=== PATIENT | male | born 1945 | race Caucasian/White ===

== ENCOUNTER 2016-11-14 16:25 | Inpatient (IN) | payer MEDICARE, BC ==
[2016-11-14] VITALS (119 sets, daily range): BP systolic 146–167; BP diastolic 79–98; PULSE 73–81; TEMP 98.3; O2SAT 94–100
[~2016-11-14] VITALS: Ht 180.3 cm; Wt 73.9 kg
[~2016-11-14 16:25] MED LIST: NO HOME MEDICATIONS
[2016-11-14 17:36] LABS: BASO % 0.3 % (0.0-2.0); EOS % 0.1 % (0-4.0); GRAN % 92.4 % (42.2-75.2); HEMATOCRIT 41.1 % (42.0-52.0); HEMOGLOBIN 13.7 g/dl (13.5-18.0); LYMPH # 0.5 (1.2-3.4); MEAN CELL VOLUME 84 fl (80.0-100.0); MEAN CORPUSCULAR HEMOGLOBIN 28 pg (27.0-31.0); MEAN CORPUSCULAR HGB CONC 33 g/dl (33.0-37.0); MONO # 0.4 (0.1-0.6); MONO % 2.9 % (1.7-9.3); PLATELET COUNT 154 K/mm3 (130-400); RED BLOOD COUNT 4.89 M/mm3 (4.20-5.60); REDCELL DISTRIBUTION WIDTH-CV 12.4 % (11.5-14.5); WHITE BLOOD COUNT 11.9 K/mm3 (4.8-10.8)
[2016-11-14 17:40] LABS: INR 1.1 (0.8-3.0); PROTHROMBIN TIME 12.3 SECONDS (9.7-12.8)
[2016-11-14 17:43] LABS: PARTIAL THROMBOPLASTIN TIME 30.4 SECONDS (26.0-37.0)
[2016-11-14 18:06] LABS: ADJUSTED CALCIUM 8.1 mg/dL (8.4-10.2); ALBUMIN 3.5 gm/dL (3.5-5.0); BILIRUBIN,TOTAL 0.7 mg/dL (0.0-1.0); CALCIUM 7.7 mg/dL (8.4-10.2); CREATININE, serum 1.22 mg/dL (0.66-1.25); TOTAL PROTEIN 6.3 gm/dL (6.4-8.2)
[2016-11-14 18:12] LABS: POTASSIUM 2.8 mmol/L (3.4-5.0)
[2016-11-14 18:17] LABS: TROPONIN-I 0.028 ng/mL (0.000-0.034)
[2016-11-14 18:22] LABS: PROLACTIN 10.6 ng/mL (3.7-17.9)
[2016-11-14 23:41] LABS: POTASSIUM 3.5 mmol/L (3.4-5.0)
[2016-11-15] VITALS (293 sets, daily range): BP systolic 125–173; BP diastolic 70–102; PULSE 59–67; TEMP 97–98.8; O2SAT 93–100
[2016-11-15 00:28] LABS: PH 6 (5-8); SQUAMOUS EPITHELIAL 0-2 /hpf; URINE APPEARANCE Clear; URINE BACTERIA None Seen /hpf; URINE BILIRUBIN Negative (NEGATIVE); URINE BLOOD 1+ (NEGATIVE); URINE COLOR Yellow; URINE GLUCOSE 1+ (NEGATIVE); URINE KETONE Negative (NEGATIVE); URINE RBC 0-2 /hpf; URINE UROBILINOGEN Negative (NEGATIVE); URINE WBC 0-2 /hpf
[2016-11-15 06:38] LABS: BASO % 0.4 % (0.0-2.0); EOS # 0.1 (0.0-0.7); EOS % 1.3 % (0-4.0); GRAN # 5.2 (1.4-6.5); GRAN % 72.1 % (42.2-75.2); HEMATOCRIT 38.6 % (42.0-52.0); HEMOGLOBIN 12.9 g/dl (13.5-18.0); LYMPH # 1.4 (1.2-3.4); LYMPH % 19.7 % (20.0-51.0); MEAN CELL VOLUME 84 fl (80.0-100.0); MEAN CORPUSCULAR HEMOGLOBIN 28 pg (27.0-31.0); MEAN CORPUSCULAR HGB CONC 33 g/dl (33.0-37.0); MEAN PLATELET VOLUME 11.3 fl (7.4-10.4); MONO # 0.4 (0.1-0.6); MONO % 6.2 % (1.7-9.3); PLATELET COUNT 149 K/mm3 (130-400); RED BLOOD COUNT 4.58 M/mm3 (4.20-5.60); REDCELL DISTRIBUTION WIDTH-CV 12.6 % (11.5-14.5); WHITE BLOOD COUNT 7.1 K/mm3 (4.8-10.8)
[2016-11-15 06:47] LABS: CALCIUM 8.6 mg/dL (8.4-10.2); CREATININE, serum 1.26 mg/dL (0.66-1.25); POTASSIUM 3.6 mmol/L (3.4-5.0)
[2016-11-16] VITALS (8 sets, daily range): BP systolic 115–201; BP diastolic 69–95; PULSE 55–66; TEMP 97.6–98.7
[2016-11-16] MEDS ORDERED: TENORMIN 2525 MG/TAB PO (18:05)
[2016-11-16] MEDS ORDERED: ZESTORETIC 12.51 TA1 PO (18:09)
[2016-11-16] MEDS ORDERED: PROCARDIA XL 6060 MG PO (18:10)
[2016-11-16] MEDS ORDERED: ASPIRIN 81M81 MG/TA2 PO (18:12)
[2016-11-17 03:45] VITALS: BP 123/67; PULSE 56; TEMP 97.6
[2016-11-17 08:03] VITALS: BP 145/82; PULSE 58; TEMP 97.5
[2016-11-17 11:15] VITALS: BP 118/61; PULSE 53; TEMP 98.4
== END 2016-11-17 17:16 | disposition home or self-care (01) | DRG 305 ==
LOC: COL.ER 16:25 → ICU 18:56 → PEDS 18:56
PROVIDERS: Emergency Medicine; Family Medicine
DX: I16.0 Hypertensive urgency (principal); I67.4 Hypertensive encephalopathy; I12.9 Hypertensive chronic kidney disease with stage 1 through stage 4 chronic kidney disease, or unspecified chronic kidney disease; N18.9 Chronic kidney disease, unspecified; E87.6 Hypokalemia; Z91.14 Patient's other noncompliance with medication regimen
CPT/HCPCS: 99223-AI; 99232-AI; 99233-AI; 99239; J1644; J3480; J7030

== ENCOUNTER 2017-01-05 11:57 | Inpatient (IN) | payer MEDICARE, BC ==
[~2017-01-05] VITALS: Ht 177.8 cm; Wt 70.1 kg
[~2017-01-05 11:57] MED LIST changes: +ASPIRIN 81M81 MG/TA2 PO; +PROCARDIA XL 6060 MG PO; +TENORMIN 2525 MG/TAB PO; +ZESTORETIC 12.51 TA1 PO
[2017-01-05 12:34] LABS: BASO % 0.3 % (0.0-2.0); EOS # 0.1 (0.0-0.7); EOS % 0.5 % (0-4.0); GRAN # 9.7 (1.4-6.5); GRAN % 87.3 % (42.2-75.2); HEMATOCRIT 41.2 % (42.0-52.0); LYMPH % 8.6 % (20.0-51.0); MEAN CELL VOLUME 84 fl (80.0-100.0); MEAN CORPUSCULAR HEMOGLOBIN 28 pg (27.0-31.0); MEAN CORPUSCULAR HGB CONC 34 g/dl (33.0-37.0); MONO # 0.3 (0.1-0.6); MONO % 2.9 % (1.7-9.3); PLATELET COUNT 175 K/mm3 (130-400); RED BLOOD COUNT 4.93 M/mm3 (4.20-5.60); WHITE BLOOD COUNT 11.1 K/mm3 (4.8-10.8)
[2017-01-05 12:52] LABS: ALANINE AMINOTRANSFERASE 15 U/L (21-72); ALBUMIN 4.1 gm/dL (3.5-5.0); ALKALINE PHOSPHATASE 91 U/L (50-136); ANION GAP 16 mmol/L (7-16); BILIRUBIN,TOTAL 0.7 mg/dL (0.0-1.0); BLOOD UREA NITROGEN 19 mg/dL (9-20); CALCIUM 9.1 mg/dL (8.4-10.2); CARBON DIOXIDE 20 mmol/L (22-30); CHLORIDE 104 mmol/L (98-107); CREATININE, serum 1.33 mg/dL (0.66-1.25); GLUCOSE 175 mg/dL (74-106); PARTIAL THROMBOPLASTIN TIME 26.4 SECONDS (26.0-37.0); POTASSIUM 3.4 mmol/L (3.4-5.0); SODIUM 139 mmol/L (137-145); TOTAL PROTEIN 7.3 gm/dL (6.4-8.2)
[2017-01-05 13:03] LABS: ALCOHOL(ethanol),MEDICAL < 10 mg/dL; PROTHROMBIN TIME 10.5 SECONDS (9.7-12.8); TROPONIN-I < 0.012 ng/mL (0.000-0.034)
[2017-01-05] MEDS ORDERED: CATAPRES 0.1MG0.1 MG PO (15:54)
[2017-01-05] MEDS ORDERED: NORVASC 10MG10 MG PO (15:54)
[2017-01-05 18:24] VITALS: BP 201/104; PULSE 95; TEMP 97.7
[2017-01-05 20:47] VITALS: BP 180/102; PULSE 81; TEMP 98.6
[2017-01-06] VITALS (8 sets, daily range): BP systolic 96–167; BP diastolic 54–88; PULSE 58–114; TEMP 95.6–98.5
[2017-01-07 03:28] VITALS: BP 127/63; PULSE 68; TEMP 98.6
[2017-01-07 07:17] LABS: CALCIUM 8.7 mg/dL (8.4-10.2); CREATININE, serum 1.27 mg/dL (0.66-1.25); POTASSIUM 3.2 mmol/L (3.4-5.0)
[2017-01-07 08:18] VITALS: BP 138/78; PULSE 61; TEMP 98.8
[2017-01-07 11:52] VITALS: BP 146/66; PULSE 79
[2017-01-07 15:18] VITALS: BP 149/60; PULSE 75; TEMP 98.2
[2017-01-07 21:00] VITALS: BP 127/53; BP 163/90; PULSE 67; TEMP 98.1
[2017-01-08 00:49] VITALS: BP 123/46; PULSE 64; TEMP 97.8
[2017-01-08 04:26] VITALS: BP 142/83; PULSE 69; TEMP 97.7
[2017-01-08 08:10] VITALS: BP 171/85; PULSE 65; TEMP 98
[2017-01-08 11:44] VITALS: BP 136/70; PULSE 82; TEMP 98.1
[2017-01-08] MEDS ORDERED: KEPPRA1000 MG PO (14:08)
[2017-01-08] MEDS ORDERED: PRAVACHOL 40MG40 MG PO (14:14)
[2017-01-08] MEDS ORDERED: ASPIRIN 32325 MG/TAB PO (14:14)
[2017-01-08] MEDS ORDERED: ZESTORETIC 12.51 TA1 PO (14:15)
[2017-01-08] MEDS ORDERED: NORVASC 10MG10 MG PO (14:15)
== END 2017-01-08 15:40 | disposition home or self-care (01) | DRG 65 ==
LOC: COL.ER 11:57 → MEDICAL 14:53
PROVIDERS: Emergency Medicine; Nurse Practitioner Family
DX: I63.9 Cerebral infarction, unspecified (principal); S06.0X1A Concussion with loss of consciousness of 30 minutes or less, initial encounter; I67.4 Hypertensive encephalopathy; I12.9 Hypertensive chronic kidney disease with stage 1 through stage 4 chronic kidney disease, or unspecified chronic kidney disease; N18.9 Chronic kidney disease, unspecified; Z72.0 Tobacco use; Z91.14 Patient's other noncompliance with medication regimen; W18.30XA Fall on same level, unspecified, initial encounter; I16.0 Hypertensive urgency; R56.9 Unspecified convulsions
CPT/HCPCS: 99223-AI; 99232-AI; 99233-AI; 99239; A9585; J0690; J7030; Q9967

== ENCOUNTER → 2017-02-15 | Outpatient (REF) ==
[~2017-02-15] MED LIST changes: +ASPIRIN 32325 MG/TAB PO; +CATAPRES 0.1MG0.1 MG PO; +KEPPRA1000 MG PO; +NORVASC 10MG10 MG PO; +PRAVACHOL 40MG40 MG PO
== END ==
LOC: ZLAB.WCH 09:21
DX: Z02.89 Encounter for other administrative examinations (principal)

== ENCOUNTER → 2017-03-21 | Outpatient (REF) ==
[2017-03-21 22:26] LABS: TOTAL IRON BINDING CAPACITY 254 ug/dL (261-462)
[2017-03-21 22:53] LABS: FERRITIN 101 ng/mL (18-464)
== END ==
LOC: ZLAB.WCH 18:38
PROVIDERS: Internal Medicine
DX: Z01.89 Encounter for other specified special examinations (principal)

== ENCOUNTER → 2018-03-01 | Outpatient (REF) ==
[2018-03-01 17:15] LABS: THYROID STIMULATING HORMONE 4.47 uIU/mL (0.465-4.680)
[2018-03-01 17:37] LABS: PSA-TOTAL 4.12 ng/mL (0-4)
== END ==
LOC: ZLAB.WCH 16:23
PROVIDERS: Internal Medicine
DX: Z01.89 Encounter for other specified special examinations (principal)
CPT/HCPCS: G0103

== ENCOUNTER → 2018-09-25 | Outpatient (REF) ==
[2018-09-25 19:55] LABS: THYROID STIMULATING HORMONE 4.74 uIU/mL (0.465-4.680)
== END ==
LOC: ZLAB.WCH 19:13
PROVIDERS: Internal Medicine
DX: Z01.89 Encounter for other specified special examinations (principal)

== ENCOUNTER 2020-04-18 05:37 | Emergency (ER) | payer MEDICARE, BC ==
[~2020-04-18] VITALS: Ht 182.9 cm; Wt 77.7 kg
[2020-04-18 05:41] VITALS: TEMP 97.7
[2020-04-18 06:06] LABS: BASO % 0.2 % (0.0-2.0); EOS % 0.2 % (0-4.0); GRAN # 11.1 (1.4-6.5); GRAN % 88.7 % (42.2-75.2); HEMATOCRIT 45.7 % (42.0-52.0); HEMOGLOBIN 15.5 g/dl (13.5-18.0); LYMPH # 0.9 (1.2-3.4); LYMPH % 7.6 % (20.0-51.0); MEAN CELL VOLUME 87 fl (80.0-100.0); MEAN CORPUSCULAR HEMOGLOBIN 29 pg (27.0-31.0); MEAN CORPUSCULAR HGB CONC 34 g/dl (33.0-37.0); MEAN PLATELET VOLUME 10.9 fl (7.4-10.4); MONO # 0.4 (0.1-0.6); MONO % 2.9 % (1.7-9.3); PLATELET COUNT 212 K/mm3 (130-400); RED BLOOD COUNT 5.27 M/mm3 (4.20-5.60); REDCELL DISTRIBUTION WIDTH-CV 12.6 % (11.5-14.5)
[2020-04-18 06:08] LABS: ALANINE AMINOTRANSFERASE 19 U/L (4-49); ALBUMIN 4.4 gm/dL (3.5-5.0); ALKALINE PHOSPHATASE 126 U/L (50-136); ANION GAP 9 mmol/L (7-16); AST,SGOT 27 U/L (15-37); BILIRUBIN,TOTAL 0.9 mg/dL (0.0-1.0); BLOOD UREA NITROGEN 21 mg/dL (9-20); CALCIUM 9.3 mg/dL (8.4-10.2); CARBON DIOXIDE 25 mmol/L (22-30); CHLORIDE 102 mmol/L (98-107); CREATININE, serum 1.27 (0.66-1.25); GLUCOSE 163 mg/dL (74-106); POTASSIUM 3.9 mmol/L (3.4-5.0); SODIUM 136 mmol/L (137-145)
[2020-04-18 06:12] LABS: PARTIAL THROMBOPLASTIN TIME 33.3 SECONDS (26.0-37.0)
[2020-04-18 06:35] LABS: TROPONIN-I < 0.012 ng/mL (0.000-0.035)
[2020-04-18 06:46] LABS: COLLECTION METHOD CLEAN CATCH
[2020-04-18 06:52] LABS: PH 7 (5-8); SQUAMOUS EPITHELIAL 0-2 /hpf; URINE APPEARANCE Clear; URINE BACTERIA None Seen /hpf; URINE BILIRUBIN Negative (NEGATIVE); URINE BLOOD Negative (NEGATIVE); URINE COLOR Yellow; URINE GLUCOSE Negative (NEGATIVE); URINE KETONE Negative (NEGATIVE); URINE LEUKOCYTE ESTERASE Trace (NEGATIVE); URINE NITRATE Negative (NEGATIVE); URINE PROTEIN(semi-quant) Negative (NEGATIVE); URINE RBC 0-2 /hpf
[2020-04-18] MEDS ORDERED: PROZAC 10MG10 MG PO (06:55)
[2020-04-18] MEDS ORDERED: ASPIRIN 81M81 MG/TA2 PO (06:55)
[2020-04-18] MEDS ORDERED: HCTZ12.5TAB PO (06:55)
[2020-04-18] MEDS ORDERED: LIPITOR 40MG TA40 MG PO (06:55)
[2020-04-18] MEDS ORDERED: XALATAN EYE DROPS OU (06:56)
[2020-04-18] MEDS ORDERED: SYNTHROID0.05 MG/TA PO (06:56)
[2020-04-18] MEDS ORDERED: KEPPRA 500MG500 MG PO (06:56)
[2020-04-18] MEDS ORDERED: STOOL SOFTENER100 M2 PO (06:57)
[2020-04-18] MEDS ORDERED: PRINIVIL20 MG PO (06:57)
[2020-04-18] MEDS ORDERED: MIRALAX PA17 GM/Dose PO (06:57)
[2020-04-18] MEDS ORDERED: MASON NATURAL2000 IU PO (06:59)
[2020-04-18 10:10] VITALS: BP 157/98; PULSE 98
== END 2020-04-18 10:10 | disposition short-term general hospital (02) ==
LOC: COL.ER 05:37
PROVIDERS: Emergency Medicine
DX: I63.9 Cerebral infarction, unspecified (principal); I65.02 Occlusion and stenosis of left vertebral artery; I10 Essential (primary) hypertension; G40.909 Epilepsy, unspecified, not intractable, without status epilepticus; Z79.82 Long term (current) use of aspirin
CPT/HCPCS: Q9967